=== PATIENT | female | born 1945 | race Caucasian/White ===

== ENCOUNTER → 2017-06-28 | Outpatient (CLI) | payer OTHER, MEDICARE ==
[2017-06-28 18:28] LABS: BLOOD UREA NITROGEN 16 mg/dl (7-18); CALCIUM 9.1 mg/dl (8.5-10.1); CARBON DIOXIDE 29 mmol/L (21-32); CHLORIDE 104 mmol/L (98-107); GLUCOSE 125 mg/dl (70-99); SODIUM 139 mmol/L (136-145)
== END | disposition home or self-care (01) ==
LOC: C.LABMFLN 15:48
PROVIDERS: ATTEND Family Medicine
DX: E78.00 Pure hypercholesterolemia, unspecified (principal); I10 Essential (primary) hypertension; E03.9 Hypothyroidism, unspecified

== ENCOUNTER 2023-02-25 09:53 | Observation (INO) ==
--- NOTE | 2022-07-01 11:56 | Communication Note ---
Patient scheduled for Left TKA 08/13/22. Patient had positive rapid testing done 06/27 at [facility] ("antigen" testing per PAT RN). Case reviewed by anesthesia team. Plan for patient to have PCR Covid testing done at PAT visit 07/12/22.
--- NOTE | 2022-07-05 14:58 | PAT Medication Instructions ---
Medication Instructions Date of Service July 05, 2022 Home Medications aspirin 81 mg tablet,delayed release 81 mg PO QAM niacin 500 mg tablet 500 mg PO QAM amoxicillin 500 mg tablet 2,000 mg PO ONCE PRN Prior to Dental procedure amlodipine 2.5 mg tablet 2.5 mg PO QAM atorvastatin 10 mg tablet 10 mg PO HS fenofibrate micronized 200 mg capsule 200 mg PO QAM molnupiravir 200 mg capsule (EUA) 800 mg PO Q12H omega-3 fatty acids 1,000 mg capsule 3,000 mg PO QAM omeprazole 20 mg capsule,delayed release 20 mg PO QAM Continue as directed amoxicillin 500 mg tablet 2,000 mg PO ONCE PRN Prior to Dental procedure (if needed) molnupiravir 200 mg capsule (EUA) 800 mg PO Q12H STOP taking 2 weeks before surgery (or as soon as possible if surgery is within 2 weeks) omega-3 fatty acids 1,000 mg capsule 3,000 mg PO QAM STOP taking 48 hours before surgery fenofibrate micronized 200 mg capsule 200 mg PO QAM niacin 500 mg tablet 500 mg PO QAM Take morning of surgery With a small sip of water, OTHERWISE NOTHING TO EAT OR DRINK AFTER MIDNIGHT: aspirin 81 mg tablet,delayed release 81 mg PO QAM (continue as normal unless told otherwise by surgeon) amlodipine 2.5 mg tablet 2.5 mg PO QAM omeprazole 20 mg capsule,delayed release 20 mg PO QAM Take evening before surgery atorvastatin 10 mg tablet 10 mg PO HS Other Notes If you have any questions please call us at [phone] or [phone] or [phone] or [phone]
--- NOTE | 2022-07-14 12:14 | Anesthesiology Consultation ---
Date of Service July 14, 2022 Assessment & Plan (1) Encounter for pre-operative examination: - anemia: pre-op H&H: 07/16. PCP planning to further evaluate, awaiting PCP pre- op determination. - Urgent/express/convenient care 06/27/22: "...runny nose and body aches for 2 days...son is positive and he lives with them...fully vaccinated...COVID test positive..." Pt states symptoms have since fully resolved. - cardiology 11/09/21: "...1 month visit after transfemoral TAVR...uncomplicated procedure and hospital course and was discharged on postoperative day #1...shortness of breath is gone...NYHA class 1...see her back in September of 2022..." Chart Review Chart Review: Pending: Refer to Additional Notes / Consult section and Patient seen in Pre Admission Testing Teaching & Discussion Pre-Anesthesia Teaching/Discussion Notes: Instructed NPO after midnight before surgery, except medications with 15 cc of water. Medication instructions provided according to the PAT guidelines. History Surgery Operation Date: 08/13/22 10:10 Proposed Procedures p Left Total Knee Arthroplasty - Mor Lou, Height/Weight Height: 5 ft 7.5 in Weight: 108.4 kg Allergies Allergy/AdvReac Type Severity Reaction Status Date / Time No Known Allergies Allergy Verified 06/30/22 14:33 Medications Home Medications Medication Instructions Recorded Confirmed Last Taken aspirin 81 mg tablet,delayed 81 mg PO QAM 11/06/21 06/30/22 Unknown release niacin 500 mg tablet 500 mg PO QAM 11/06/21 06/30/22 Unknown amoxicillin 500 mg tablet 2,000 mg PO ONCE PRN Prior to 12/07/21 06/30/22 Unk nown Dental procedure amlodipine 2.5 mg tablet 2.5 mg PO QAM 06/30/22 06/30/22 Unknown atorvastatin 10 mg tablet 10 mg PO HS 06/30/22 06/30/22 Unknown fenofibrate micronized 200 mg 200 mg PO QAM 06/30/22 06/30/22 Unknown capsule molnupiravir 200 mg capsule (EUA) 800 mg PO Q12H 06/30/22 06/30/22 Unknown omega-3 fatty acids 1,000 mg 3,000 mg PO QAM 06/30/22 06/30/22 Unknown capsule omeprazole 20 mg capsule,delayed 20 mg PO QAM 06/30/22 06/30/22 Unknown release Past Medical History Medical History (Updated 07/14/22 @ 17:09 by Randy Clayton MD) Acid reflux controlled, stable per pt Anemia pre-op H&H 06/2022: 07/16 Aortic stenosis s/p TAVR 09/2021, follows with [facility] CKD (chronic kidney disease) no specialist Gout History of COVID-19 Jun 27, 2022 > tested at Urgent care in [place] (MAXIMILIANO Clint) , body aches, cold like symptoms, > still has some congestion Hypercholesterolemia Hypertension controlled, stable per pt Nausea and vomiting after administration of anesthetic agent denies needing scop patch Prediabetes diet controlled Patient denies h/o stroke, seizures, heart attack, heart failure, blood clots or blood transfusions. Exercise / Class Metabolic Activity III < 4 Walking/Shop/Light housework (denies CP or SOB with usual activities) Past Family History Family History Mother Breast cancer Brother Heart disease Myocardial infarction Denies family history of Ovarian cancer Prostate cancer Lung cancer Colorectal cancer Past Surgical History Surgical History [place] [facility] [place] History of colonoscopy History of tooth extraction S/P cholecystectomy Past Anesthesia History No Hx of Anesthesia Complications and No Family Hx of Anesthesia Complications History of PONV History of PONV (denies needing scop patch) and Hx of Motion Sickness Social History Smoking Status: Never smoker Do You Dip or Chew Tobacco: No Hx Alcohol Use: Yes Alcohol type: hard liquor alcohol intake frequency: holidays/special occasions only Hx Substance Use: No substance use type: does not use Review of Systems Patient denies chest pain, shortness of breath, dyspnea on exertion, snoring, witnessed apneas, fever, chills, cough, wheezing, or palpitations. Physical Exam Vital Signs Vitals BP 118/70 P 64 TEMP 98.2 SP02 97% on RA RESP 16 Physical Full cervical extension range of motion without pain TMD 3.5 finger breadths Mallampati Score 2 Dentition: intact, implant-left lower back, several caps/crowns; denies chipped or loose teeth or bridges Lungs: normal respiratory effort. Clear throughout to auscultation, no adventitious breath sounds Cardiac: regular rate and rhythm, no murmurs noted Carotid arteries: negative bruit bilat Lab Results Anesthesia Preop Results Results Anesthesia Widget: WBC 7.91 K/ul (4.8-10.8) 07/14/22 Hgb 9.4 g/dl (12.0-16.0) L 07/14/22 Hct 30.3 % (34.1-44.9) L 07/14/22 Plt 338 K/uL (130-400) 07/14/22 Na 139 mmol/L (136-145) 07/14/22 K 4.4 mmol/L (3.5-5.1) 07/14/22 Cl 108 mmol/L (98-107) H 07/14/22 CO2 24 mmol/L (21-32) 07/14/22 BUN 32 mg/dl (6-23) H 07/14/22 Creat 1.55 mg/dl (0.6-1.2) H 07/14/22 Glucose Level 107 mg/dl (70-99(Fasting)) H 07/14/22 PT 11.4 Seconds (9.0-12.0) 07/14/22 PTT 22.4 Seconds (21.0-31.0) 07/14/22 INR 1.1 (0.9-1.1) 07/14/22 HA1c 6.5 % (4.5-5.6) H 06/10/22 Blood Type A Positive 07/14/22 Antibody Screen NEGATIVE 07/14/22 Testing Electrocardiogram Date: 11/09/21 NSR, rate 73 bpm Nonspecific T wave abnormality Chest X-Ray Date: 07/14/22 Mild cardiomegaly without acute abnormality. Echocardiogram Date: 09/08/21 EF 60-65% Severe aortic stenosis-underwent TAVR [id number] Grade I diastolic dysfunction Moderate cLVH No regional wall motion abnormalities noted Mild LA dilatation Mild mitral regurgitation Other Testing Head CT 08/29/21 Moderate atrophy consistent with the patient's age. No acute intracranial abnormality COVID-19 Risk Screen Screening Information COVID-19 Screen Date: 07/14/22 Exposure 21 Days Family/Household +COVID Last 21 Days: No Exposure 10 Days Any COVID Exposure Last 10 Days: No Symptoms Last 10 Days Experienced COVID Sx Last 10 Days: No + COVID 0-90 Days COVID + in Last 0-90 Days: Yes + COVID Test 0-10 Day: No + COVID Test 11-90 Day: Yes
--- NOTE | 2023-02-15 11:01 | Anesthesiology Consultation ---
Date of Service February 15, 2023 Assessment & Plan (1) Encounter for pre-operative examination: Chart Review Chart Review: Acceptable Risk for Surgery and Patient NOT seen in Pre Admission Testing - Pt is not an OPJ candidate -COVID screening: Per PAT nursing assessment on 02/15/23. No known COVID-19 positive contacts or current COVID-19 related symptoms. Travel screen negative. Patient vaccinated for Covid. At surgeon discretion if preop Covid testing being done. Pt seen by PCP 11/23/22= "Left Knee OA w planned TKR Cardiac cath. NL at time of TAVR. Needs SBE prophylaxis at time of surgery." Recommend repeat labs Last seen by cardiology 10/13/2022 = patient seen for follow-up 1 year status post TAVR. Patient had uncomplicated procedure and hospital course. Patient was to have right TKA August 2022this was canceled due to low blood counts. Patient had endoscope identifying inflammation but no active site of bleeding. Colonoscopy was benign. From a cardiovascular standpoint she should proceed with rescheduling with orthopedics. This certainly is pending her follow up with GI given iron deficiency anemia. (Anemia improved) History Surgery Operation Date: 08/13/22 10:30 Proposed Procedures p Left Total Knee Arthroplasty - Mor Lou DO Operation Date: 12/06/22 10:40 Proposed Procedures p Left Total Knee Arthroplasty - Mor Lou DO Operation Date: 02/25/23 08:10 Proposed Procedures p Left Total Knee Arthroplasty - Mor Lou, DO Height/Weight Height: 5 ft 7.5 in Weight: 107.501 kg Allergies Allergy/AdvReac Type Severity Reaction Status Date / Time No Known Allergies Allergy Verified 02/15/23 10:32 Medications Home Medications Medication Instructions Recorded Confirmed Last Taken aspirin 81 mg tablet,delayed 81 mg PO QAM 11/06/21 02/15/23 09/13/22 release niacin 500 mg tablet 500 mg PO QAM 11/06/21 02/15/23 09/13/22 amoxicillin 500 mg tablet 2,000 mg PO ONCE PRN Prior to 12/07/21 02/15/23 Unknown Dental procedure atorvastatin 10 mg tablet 10 mg PO HS 06/30/22 02/15/23 09/13/22 fenofibrate micronized 200 mg 200 mg PO QAM 06/30/22 02/15/2322 capsule omega-3 fatty acids 1,000 mg 3,000 mg PO QAM 06/30/22 02/15/23 09/13/22 capsule 3-in-1 Commode #1 ea 08/05/22 02/15/23 Unknown ascorbic acid (vitamin C) 250 mg 250 mg PO QAM 09/02/22 02/15/23 09/13/22 tablet omeprazole 40 mg capsule,delayed 40 mg PO QAM 09/02/22 02/15/23 09/14/22 release amlodipine 2.5 mg tablet 2.5 mg PO QAM #90 tabs 12/06/22 02/15/23 Unknown ferrous sulfate 325 mg (65 mg 325 mg PO QAM #90 tabs 01/28/23 02/15/23 Unknown iron) tablet Past Medical History Medical History (Updated 02/15/23 @ 11:01 by Cathy Goins PA-C) Acid reflux controlled, stable per pt Anemia Improved from previous - Hgb 12.2 and Hct 36.8 on 01/2023 preop labs Aortic stenosis s/p TAVR 09/2021, follows with [facility] CKD (chronic kidney disease) no specialist Gout History of COVID-19 Jun 27, 2022 > tested at Urgent care in [place] (MAXIMILIANO Jaramillo) , body aches, cold like symptoms, > no symptoms now Hypercholesterolemia Hypertension controlled, stable per pt Nausea and vomiting after administration of anesthetic agent denies needing scop patch Prediabetes diet controlled Hgb A1C 6.5 on 11/23/22 Past Family History Family History Mother Breast cancer Brother Heart disease Myocardial infarction Denies family history of Ovarian cancer Prostate cancer Lung cancer Colorectal cancer Past Surgical History Surgical History H/O aortic valve repair Sep 2021 > [facility] [place] H/O arthroscopic knee surgery right History of colonoscopy History of esophagogastroduodenoscopy (EGD) History of tooth extraction S/P cholecystectomy Social History Smoking Status: Never smoker Do You Dip or Chew Tobacco: No Hx Alcohol Use: Yes Alcohol type: wine alcohol intake frequency: a few times a month Hx Substance Use: No substance use type: does not use Lab Results Anesthesia Preop Results Results Anesthesia Widget: WBC 8.33 K/ul (4.8-10.8) 01/25/23 Hgb 12.2 g/dl (12.0-16.0) 01/25/23 Hct 36.8 % (37.0-47.0) L 01/25/23 Plt 291 K/uL (130-400) 01/25/23 Na 138 mmol/L (136-145) 01/25/23 K 4.3 mmol/L (3.5-5.1) 01/25/23 Cl 104 mmol/L (98-107) 01/25/23 CO2 25 mmol/L (21-32) 01/25/23 BUN 24 mg/dl (6-23) H 01/25/23 Creat 1.36 mg/dl (0.6-1.2) H 01/25/23 Glucose Level 128 mg/dl (70-99(Fasting)) H 01/25/23 PT 11.2 Seconds (9.0-12.0) 01/25/23 PTT 23.6 Seconds (21.0-31.0) 01/25/23 INR 1.1 (0.9-1.1) 01/25/23 Blood Type A Positive 01/25/23 Antibody Screen NEGATIVE 01/25/23 Testing Laboratory Results Elevated creatinine chronic and stable since 2020 Electrocardiogram Date: 10/04/22 Findings: + NSR @ (77bpm) Late R wave progression When compared to EKG from November 09, 2021no significant changes found per cardio Chest X-Ray Date: 07/14/22 FINDINGS: No lines and tubes are seen. Aortic valvular replacement is noted. The cardiac silhouette is mildly prominent. The lungs are clear. No evidence of pleural effusion or pneumothorax. IMPRESSION: Mild cardiomegaly without acute abnormality. Echocardiogram Date: 10/04/22 EF: 60-65% History of aortic stenosis status post TAVR (26 mm Almodovar KETURAH S3, 2020). No prosthetic stenosis. Trace paravalvular regurgitation. Normal LV size and systolic function with no regional wall motion abnormalities. Normal systolic function, estimated EF 60-65% Concentric remodeling is present No indirect evidence of pulmonary hypertension Normal IVC size and inspiratory collapse suggestive of normal CVP/RAP Compared to prior date 10/2021, no major changes based on directly comparable images
--- NOTE | 2023-02-24 12:27 | History & Physical Report ---
Date of Service February 24, 2023 Assessment & Plan (1) Localized osteoarthritis of left knee: We will proceed with a left total knee arthroplasty. Postoperatively she will be started on aspirin for DVT prophylaxis and kept overnight in the hospital for postoperative medical management. She plans to use energy physical therapy upon discharge. History of Present Illness Chief Complaint: Osteoarthritis of the left knee. Primary Care Provider: Randy Clayton MD Sharita is a pleasant 77-year-old female who has been dealing with chronic worsening left knee pain. X-rays and clinical examination have been diagnostic for advanced osteoarthritis of the left knee. After failing extensive conservative treatment, including years of injections, she has elected proceed with a left knee replacement surgery. Allergies Allergy/AdvReac Type Severity Reaction Status Date / Time No Known Allergies Allergy Verified 02/15/23 10:32 Home Medications Medication Instructions Recorded Confirmed Type aspirin 81 mg tablet,delayed 81 mg PO QAM 11/06/21 02/15/23 History release niacin 500 mg tablet 500 mg PO QAM 11/06/21 02/15/23 History amoxicillin 500 mg tablet 2,000 mg PO ONCE PRN Prior to 12/07/21 02/15/23 History Dental procedure atorvastatin 10 mg tablet 10 mg PO HS 06/30/22 02/15/23 History fenofibrate micronized 200 mg 200 mg PO QAM 06/30/22 02/15/23 History capsule omega-3 fatty acids 1,000 mg 3,000 mg PO QAM 06/30/22 02/15/23 History capsule 3-in-1 Commode #1 ea 08/05/22 02/15/23 Rx ascorbic acid (vitamin C) 250 mg 250 mg PO QAM 09/02/22 02/15/23 History tablet omeprazole 40 mg capsule,delayed 40 mg PO QAM 09/02/22 02/15/23 History release amlodipine 2.5 mg tablet 2.5 mg PO QAM #90 tabs 12/06/22 02/15/23 Rx ferrous sulfate 325 mg (65 mg 325 mg PO QAM #90 tabs 01/28/23 02/15/23 Rx iron) tablet Past Med/Surg History Medical History Acid reflux controlled, stable per pt Anemia Improved from previous - Hgb 12.2 and Hct 36.8 on 01/2023 preop labs Aortic stenosis s/p TAVR 09/2021, follows with [facility] CKD (chronic kidney disease) no specialist Gout History of COVID-19 Jun 27, 2022 > tested at Urgent care in [place] (MAXIMILIANO Farleyir) , body aches, cold like symptoms, > no symptoms now Hypercholesterolemia Hypertension controlled, stable per pt Nausea and vomiting after administration of anesthetic agent denies needing scop patch Prediabetes diet controlled Hgb A1C 6.5 on 11/23/22 Surgical [place] [facility] [place] History of colonoscopy History of esophagogastroduodenoscopy (EGD) History of tooth extraction S/P cholecystectomy Family History Mother Breast cancer Brother Heart disease Myocardial infarction Denies family history of Ovarian cancer Prostate cancer Lung cancer Colorectal cancer Social History Smoking Status: Never smoker Second Hand Exposure: No; Do You Dip or Chew Tobacco: No; Tobacco Cessation Education Requested by Patient: No Hx Alcohol Use: Yes Alcohol type: wine Alcohol Intake Frequency: Monthly or Less Alcohol Intake Frequency Comment: Rarely Hx Substance Use: No Preferred Language: [place] Communication Ability: Effective Visual Impairment: Partially Limited Hearing Ability: Normal Air Tester Required: No Beliefs That Will Affect Care: None marital status: / Current Living Situation: Alone Current Living Situation Comment: Son lives with patient currently current occupational status: retired current occupation: Used to work as a insurance and traveling passenger agent. How many Children do You have: 2 How many Children do You have Comment: Step children Other Information That Helps Us Care for You: No Feels Safe at Home: Yes Safety Concerns: Feels Safe At This Time Childhood Exposure to Second-Hand Smoke: Yes (Father smoked) Diet: regular Diet Comment: Regular caffeine: Yes (Coffee ) during the past year weight has: decreased > 10 lbs Dental Care, Regularly: Yes Physical Activity Frequency: Does not Exercise Seatbelt Use: always Sunscreen Use: No Do you think of yourself as: straight/heterosexual Gender Identity: Female Assistive Devices: Glasses Review of Systems All systems reviewed & are unremarkable except as noted in HPI & below. Physical Exam On physical examination left knee, she has a significant varus deformity. She has tenderness palpation over the distal medial femoral condyle and over the medial joint line.. Constitutional WD/WN, vitals as above Eyes PERRL, conjunctivae normal, anicteric sclerae ENMT external ear and nose normal, oropharynx normal Neck trachea midline, no thyromegaly Respiratory normal respiratory effort, lungs clear to auscultation Cardiovascular RRR, no murmur, no edema Gastrointestinal (Abdomen) normal bowel sounds, soft, nontender, no hepatosplenomegaly Skin no rashes, warm and dry Psychiatric A+Ox3, euthymic affect Results & Data Results & Data Laboratory Results . Diagnostic Findings X-rays of the left knee show advanced osteoarthritis with joint space narrowing, osteophyte formation, and [id number] articulation.. PG Care Time/CCT Total # of Minutes Spent Total Time Spent with Patient: Total time spent is greater than 50% in coordination of care (as documented) at patient's floor/unit and/or counseling patient: Coding Level of Care Code None Diagnoses Localized osteoarthritis of left knee M17.12
[~2023-02-25 09:53] MED LIST: ACETAMINOPHEN 500 MG TAB PO SCH; FAMOTIDINE 20 MG TAB PO SCH; GABAPENTIN 300 MG CAP PO SCH; LR 500ML BOLUS, THEN 15ML/HR IV SCH; LR 60ML/HR IV SCH; ORTHO JOINT MIX INFIL SCH; TRANEXAMIC ACID 1,000 MG **IV Intra-op IV SCH; TRANEXAMIC ACID 1,000 MG **IV Pre-op IV SCH; ceFAZolin 2000MG 2,000 MG/15 ML SYR IV SCH; dexAMETHasone 4 MG TAB PO SCH
[2023-02-25] MEDS ORDERED: BUPIVACAINE 0.25% PF 30 ML VIAL ONE (10:15)
[2023-02-25] MEDS ORDERED: BUPIVACAINE 0.5 % 5 MG/1 ML PF 10ML VIAL ONE (10:15)
[2023-02-25] MEDS ORDERED: ePHEDrine sulfate 50 MG/ML AMP IV PRN (12:11)
[2023-02-25] MEDS ORDERED: ONDANSETRON INJ 2 MG/ML 2 ML VIAL IV PRN ×2 (12:11→16:06)
[2023-02-25] MEDS ORDERED: ATROPINE SULFATE 0.1 MG/ML 10ML SYR IV PRN (12:11)
[2023-02-25] MEDS ORDERED: fentaNYL citrate PF 100 MCG/2 ML VIAL IV PRN (12:11)
--- NOTE | 2023-02-25 12:23 | History & Physical Bridge Note ---
Date of Service February 25, 2023 History & Physical Bridge Note I have examined the patient, reviewed the History & Physical and in the interval since the performance of the History & Physical I have noted the following changes of clinical significance: no changes noted
[2023-02-25] MEDS ORDERED: ORTHO JOINT ANESTHETIC ONE (12:54)
[2023-02-25] MEDS ORDERED: MIDAZOLAM HCL 1 MG/ML 2ML VIAL ONE (12:59)
[2023-02-25] MEDS ORDERED: ONDANSETRON INJ 2 MG/ML 2 ML VIAL ONE (13:02)
[2023-02-25] MEDS ORDERED: PROPOFOL IV EMULSION 10 MG/ML 20 ML VIAL IV ONE (13:02)
[2023-02-25] MEDS ORDERED: PHENYLEPHRINE HCL 10 MG/ML VIAL ONE (14:33)
--- NOTE | 2023-02-25 14:54 | Operative Report ---
PG Post Operative Report Pre & Post Diagnosis Operation Date: 02/25/23 12:50 Pre-Op Diagnosis: Left Knee Osteoarthritis Post-Op Diagnosis: Left Knee Osteoarthritis I identified the patient and participated in the time-out.: Yes Procedure Operation Date: 02/25/23 12:50 Actual Procedures p Left Total Knee Arthroplasty(Left) - Mor Lou DO Surgeon Mor Lou DO Dance Master Evan Hsieh PA-C Estimated Blood Loss 30 Findings Consistent with Post-Op Diagnosis Specimens Left femoral and tibial bone Description of Procedure Implants used: I used a Trell Persona total knee arthroplasty system with a size 9 narrow PS femur, D tibia with a 30 mm stem extension, 31 oval patella, and a size 12 CPS polyethylene bearing. All components were cemented in place with Biomet cement. Sharita arrived [facility] for the above procedure. She was seen in the preoperative holding area and the operative extremity was identified and signed. She was given a preoperative antibiotic, TXA, a spinal anesthetic and an adductor nerve block. She was taken back to the operating room and laid on the table in supine position. She was given basic sedation. The operative knee was then prepped and draped in sterile fashion. A timeout was done, and the patient and the operative extremity was properly identified. A midline incision was made directly over the patella. Dissection was taken down to the extensor mechanism. A midvastus arthrotomy was used. The medial retinaculum was released and the fat pad was mostly excised. The knee was flexed and the ACL, PCL, and meniscus were removed. A drill was sent down the center of the femoral canal followed by an intramedullary david. Off that david a distal femoral cutting block was placed. 9 mm was resected off the distal femur at 5 of valgus. A posterior referencing AP sizing guide was then placed on the distal femur. The femur measured to be a size 9. 2 drill holes were placed in 3 of external rotation. A 4-in-1 cutting block was then impacted into place. Anterior, posterior, and chamfer cuts were then made. The proximal tibia was then exposed. An external tibial alignment guide was placed. A tibial cut guide was then anchored in place and the proximal tibia was then resected. The posterior aspect of the knee was then opened up and any additional meniscus fragments and osteophytes were removed. The tibia measured to be a size D. The tibial plate was then placed in the appropriate rotation and the tibia was drilled and punched. Trial components were then placed. I used a size 12 CPS polyethylene insert. The knee was brought through a full range of motion and felt to be stable. The peg holes for the femoral component were then drilled. The patella was then everted and 9 mm was resected off the posterior aspect of the patella. The patella measured to be a size 31 oval. 3 peg holes were then drilled. A trial patella was placed. The knee was once again brought through a full range of motion and felt to be stable. Trial components were then removed. The surrounding soft tissues were injected with 100 cc of an orthopedic pain control cocktail. All components were then cemented into place with Biomet cement. The final polyethylene insert was then snapped into place. Once cement was dry the tourniquet was deflated. Hemostasis was obtained. A dilute betadyne lavage was then done for 3 minutes. The joint was then irrigated with normal saline solution. The midvastus arthrotomy was then closed with #1 Vicryl suture. The skin was closed with 2-0 Vicryl, 3-0V lock suture, and nayan. A soft compressive dressing was placed. She was then transferred to a hospital bed and taken to the postanesthesia care unit in stable condition. She tolerated the procedure well. Evan Hsieh PA-C, was present for the entire procedure. He was critical for patient positioning, prepping, draping, retraction exposure, wound closure and application of sterile dressing. I attest to the content of the Intraoperative Record and any orders documented therein. Any exceptions are noted below.
--- NOTE | 2023-02-25 15:33 | Anesthesiology Progress Note ---
Date of Service February 25, 2023 Anesthesia Post Procedure Vital Signs Vital Signs: Temp Pulse Resp BP Pulse Ox O2 Del Method 02/25/23 11:06 36.8 C 75 20 174/72 H 98 Room Air Transfer of Care Handoff Completed per policy Notes Mental Status: alert / awake / arousable Patient Amnestic to Procedure: Yes Nausea / Vomiting: adequately controlled Pain: adequately controlled Airway Patency, RR, SpO2: stable & adequate BP & HR: stable & adequate Hydration State: stable & adequate Neuraxial Anesthesia: was administered and sensory block is resolving Anesthetic Complications: no major complications apparent
--- NOTE | 2023-02-25 15:52 | XRay Report ---
LEFT KNEE 2 VIEWS History: Left total knee arthroplasty. Degenerative arthritis. Postop. FINDINGS: The patient is status post a left total knee arthroplasty. The hardware is intact. No fract ure or dislocation. Skin nayan are in place. IMPRESSION: Left total knee arthroplasty. No evidence for hardware complication. ACT 112: Negative or not required by law. Electronically signed by: Nelson Benito M.D. 02/25/2023 3:51 PM
[2023-02-25] MEDS ORDERED: oxyCODONE HCL IR 5 MG TAB (IMMEDIATE RELEASE) PO PRN (16:06)
[2023-02-25] MEDS ORDERED: METOCLOPRAMIDE HCL INJ 5 MG/ML 2 ML VIAL IV PRN (16:06)
[2023-02-25] MEDS ORDERED: NALOXONE HCL 0.4 MG/1 ML VIAL/CARP IV PRN (16:06)
[2023-02-25] MEDS ORDERED: MAGNESIUM HYDROXIDE SUSP 30 ML UDC PO PRN (16:06)
[2023-02-25] MEDS ORDERED: bisacodyL 10 MG SUPP PR PRN (16:06)
[2023-02-25] MEDS ORDERED: SODIUM CHLORIDE 0.9% 1000ML 1,000 ML IV SCH (16:06)
[2023-02-25] MEDS ORDERED: PHARMACY GLYCEMIC MGMT CONSULT PRN (16:06)
[2023-02-25] MEDS: KETOROLAC TROMETHAMINE 15 MG/ML VIAL IV SCH (16:35)
[2023-02-25] MEDS: INSULIN ASPART PER UNIT CHARGE SC SCH ×2 (17:48→19:56)
[2023-02-25] MEDS ORDERED: ATORVASTATIN 10 MG TAB PO SCH (21:00)
[2023-02-25] MEDS ORDERED: SENNA 8.6 MG TAB PO SCH (21:00)
[2023-02-25] MEDS: DOCUSATE SODIUM 100 MG CAP PO SCH (21:03)
[2023-02-25] MEDS: ceFAZolin 2000MG 2,000 MG/15 ML SYR IV SCH (21:03)
[2023-02-25] MEDS: ASPIRIN 81 MG ECTAB PO SCH (21:04)
[2023-02-26] MEDS: KETOROLAC TROMETHAMINE 15 MG/ML VIAL IV SCH ×2 (00:36→05:41)
[2023-02-26] MEDS: ceFAZolin 2000MG 2,000 MG/15 ML SYR IV SCH (05:41)
[2023-02-26] MEDS: ASPIRIN 81 MG ECTAB PO SCH (07:24)
[2023-02-26] MEDS: DOCUSATE SODIUM 100 MG CAP PO SCH (07:24)
--- NOTE | 2023-02-26 07:40 | Orthopedic Progress Note ---
Date of Service February 26, 2023 Assessment & Plan (1) Status post left knee replacement: Overall she is doing very well. She is not having much pain in the left knee. She will be seen by physical therapy today for ambulation and range of motion exercises. She is on aspirin for DVT prophylaxis. She can be discharged home later today. She will follow-up with orthopedics in 2 weeks. Subjective Sharita was seen and examined at bedside this morning. Overall she is doing very well. She is not having much pain in the left knee. She has been up and ambulating to the bathroom. She is no complaints.. Review of Systems All systems reviewed & are unremarkable except as noted in HPI & below. Physical Exam On physical examination of left knee, the dressing is clean and dry. Her leg is out full extension. She has active dorsiflexion plantarflexion of her left ankle.. Results & Data Results & Data Laboratory Results . Diagnostic Findings Postoperative x-rays of the left knee show the prosthesis to be in anatomic alignment without any evidence of fracture, screws, or loosening. PG Care Time/CCT Total # of Minutes Spent Total Time Spent with Patient: Total time spent is greater than 50% in coordination of care (as documented) at patient's floor/unit and/or counseling patient: Coding Level of Care Code 87853 Post Operative Follow-Up Diagnoses Status post left knee replacement Z96.652
--- NOTE | 2023-02-26 07:41 | Discharge Summary ---
Date of Service February 26, 2023 Admission HPI (Per Admitting) Sharita is a pleasant 77-year-old female who has been dealing with chronic worsening left knee pain. X-rays and clinical examination have been diagnostic for advanced osteoarthritis of the left knee. After failing extensive conservative treatment, including years of injections, she has elected proceed with a left knee replacement surgery. Admission Exam (Per Admitting) On physical examination left knee, she has a significant varus deformity. She has tenderness palpation over the distal medial femoral condyle and over the medial joint line.. Principal Diagnosis Same as "Discharge Diagnosis" noted below under Discharge Instructions. Discharge Exam On physical examination of left knee, the dressing is clean and dry. Her leg is out full extension. She has active dorsiflexion plantarflexion of her left ankle.. Discharge Data Procedures Performed Operation Date: 02/25/23 12:50 Actual Procedures p Left Total Knee Arthroplasty(Left) - Mor Lou DO Ordered Studies 02/25/23 05:00 US - OR guided needle placemen Routine Hospital Course (1) Status post left knee replacement: On February 26, 2023 Sharita arrived at [facility] and underwent a left knee replacement without complication. She had a spinal anesthetic. Postoperatively she was started on aspirin for DVT prophylaxis and transferred to the general orthopedic floors. Her hospital course was uneventful. On postop day #1, her vital signs were stable and her pain was well controlled. She was able to participate well with physical therapy doing ambulation and range of motion exercises. She was then discharged home. She will follow-up with orthopedics in 2 weeks. PG Care Time/CCT Total # of Minutes Spent Total Time Spent with Patient: Total time spent is greater than 50% in coordination of care (as documented) at patient's floor/unit and/or counseling patient: Discharge Plan Discharge Items Patient Disposition: Home - Home Health Services Reason For Visit: POST OP Discharge Diagnosis: Left knee replacement Activity: Per Instructions section Non-emergency contact: Surgeon Call non-emergency contact if: your wound has increased redness and your wound has increased drainage Follow-up/Referrals: Randy Clayton MD [Primary Care Provider] - Diet: Regular Addtl Attending Provider Instructions: Activity and Therapy Recommendations: * If you are using [facility] then therapy will be provided at your home until they feel you have accomplished all of your goals. * If you are using [facility] then Physical Therapy will be provided until they feel you are ready to start Outpatient Physical Therapy. * If you are not using home therapy then Outpatient Physical Therapy should start about 3-5 days from your day of surgery. Therapy will last about 6-10 weeks * It is important not to put a pillow under your knee when you are relaxing or sleeping. It is just as important to make sure you are getting your knee perf ectly straight as it is to regain your knee bend. * You were shown a series of exercises in the hospital. Do these exercises three times each day including the exercises you were shown in physical therapy. * Get up and walk several times each day. For the first four weeks, try not to stand or walk for more than one hour at a time. If you do stand or walk for more than one hour, you will not hurt anything, but your leg will likely swell. * As you feel comfortable, you may change from the walker or crutches to a cane and then to independent walking. Medications: * Narcotic You will likely be sent home from the hospital with a prescription for the narcotic pain medication that worked best throughout your stay. * Aspirin Most patients will be required to take Aspirin 81mg twice a day for 6 weeks after surgery. This is obtained [id number] and a prescription is not necessary. * Other medications may be prescribed for specific circumstances. If you have a ny questions, please call the office at . * Resume previous home medications unless otherwise instructed TEDs/Elastic Stockings: The white elastic stockings help limit swelling and prevent blood clots from forming in your legs.~ The more you wear them, the more they work. Wear them for six weeks. Dressing Care: The dressing can be changed after physical therapy on postop day #1. Daily dry dressing changes for a few days, especially if the incision is still draining some. If the incision is not draining then you may leave the nayan open to air. If there is a little bit of drainage or if the nayan are getting stuck on your clothing then cover the incision with a dry dressing. The nayan will be removed at your 2 week follow-up appointment. Showering: You may shower 5 days from the day of surgery as long as the incision is no longer draining. You may shower with the nayan exposed. Let soapy water run over the nayan and pat them dry. Do not scrub or soak the incision. Things To Watch For: * Drainage from the incision site that occurs more than one week after your surgery. * Increased redness at the incision site. * Fever above 102 degrees Fahrenheit. * Unusual chest pain or shortness of breath. * Call [facility] at with any of the above problems Follow-Up Visit: Follow-up with Dr. Lou's PA (Mor Mendoza) 2-3 weeks after your day of surgery. He will remove your nayan and answer any questions. If you have any additional questions or concerns, Dr Lou is usually in the office at the same time and will be available An appointment was probably scheduled when you signed-up for surgery in the office. If you have any questions call Office Instructions: More detailed instructions as well as Frequently Asked Questions were provided in a folder by our office when you signed-up for surgery. Please review these instructions when you get home. If you have any further questions or concerns, please feel free to call the office at [phone] Pending Studies at Discharge: No Stand-Alone Forms: My [facility]ity Medications and DC Order Prescriptions: New oxycodone-acetaminophen 5-325 mg tablet 1 tab PO Q6H PRN (Reason: pain) Qty: 30 0RF Continued (DME) 3-in-1 Commode Misc See Rx Instructions .MEDSUPPLY Qty: 1 0RF Rx Instructions: As directed amlodipine 2.5 mg tablet 2.5 mg PO QAM Qty: 90 1RF ferrous sulfate 325 mg (65 mg iron) tablet 325 mg PO QAM Qty: 90 1RF amoxicillin 500 mg tablet 2,000 mg PO ONCE PRN (Reason: Prior to Dental procedure) niacin 500 mg tablet 500 mg PO QAM omega-3 fatty acids 1,000 mg capsule 3,000 mg PO QAM atorvastatin 10 mg tablet 10 mg PO HS fenofibrate micronized 200 mg capsule 200 mg PO QAM omeprazole 40 mg capsule,delayed release(DR/EC) 40 mg PO QAM ascorbic acid (vitamin C) 250 mg tablet 250 mg PO QAM Changed aspirin 81 mg tablet,delayed release (DR/EC) 81 mg PO BID 42 Days Qty: 0 0RF Admission Data Admit Date/Time: 02/25/23 15:17 Attending Provider: Mor Lou Admit Provider: Mor Lou Primary Care Provider: Randy Clayton
[2023-02-26] MEDS ORDERED: dexAMETHasone 4 MG TAB PO SCH (08:00)
[2023-02-26] MEDS: INSULIN ASPART PER UNIT CHARGE SC SCH (08:28)
[2023-02-26 08:54] LABS: Estimated Average Glucose 137 mg/dl; Hemoglobin A1C 6.4 % (4.5-5.6)
[2023-02-26] MEDS ORDERED: ASCORBIC ACID 500 MG TAB PO SCH (09:00)
[2023-02-26] MEDS ORDERED: FERROUS SULFATE 325 MG TAB PO SCH (09:00)
[2023-02-26] MEDS ORDERED: NIACIN 500 MG TAB PO SCH (09:00)
[2023-02-26] MEDS ORDERED: MULTIVITAMIN TAB PO SCH (09:00)
[2023-02-26] MEDS ORDERED: amLODIPine BESYLATE 5 MG TAB PO SCH (09:00)
[2023-02-26] MEDS ORDERED: OMEGA-3 (PURIFIED FISH OIL) 1 GM CAP PO SCH (09:00)
[2023-02-26] MEDS ORDERED: PANTOprazole 40 MG TAB PO SCH (09:00)
== END 2023-02-26 11:34 | disposition home health service (06) ==
LOC: ASU 09:53 → 3E 09:53

== ENCOUNTER 2023-06-27 06:04 | Observation (INO) ==
--- NOTE | 2023-05-24 14:36 | PAT Medication Instructions ---
Medication Instructions Date of Service May 24, 2023 Home Medications Medication Instructions Recorded 3-in-1 Commode #1 ea 08/05/22 amlodipine 2.5 mg tablet 2.5 mg PO QAM #90 tabs 12/06/22 ferrous sulfate 325 mg (65 mg 325 mg PO QAM #90 tabs 01/28/23 iron) tablet aspirin 81 mg tablet,delayed 81 mg PO BID 42 days #0 tabs 02/26/23 release amoxicillin 500 mg tablet 2,000 mg PO ONCE PRN Prior to 03/21/23 Dental procedure #4 tabs niacin 500 mg tablet 500 mg PO QAM atorvastatin 10 mg tablet 10 mg PO HS fenofibrate micronized 200 mg capsule 200 mg PO QAM omega-3 fatty acids 1,000 mg capsule 3,000 mg PO QAM ascorbic acid (vitamin C) 250 mg tablet 250 mg PO QAM omeprazole 40 mg capsule,delayed release 40 mg PO QAM amlodipine 2.5 mg tablet 2.5 mg PO QAM ferrous sulfate 325 mg (65 mg iron) tablet 325 mg PO QAM aspirin 81 mg tablet,delayed release 81 mg PO BID amoxicillin 500 mg tablet 2,000 mg PO ONCE PRN Prior to Dental procedure Continue as directed amoxicillin 500 mg tablet 2,000 mg PO ONCE PRN Prior to Dental procedure (if needed) ASK your prescriber and surgeon aspirin 81 mg tablet,delayed release 81 mg PO BID STOP taking 2 weeks before surgery omega-3 fatty acids 1,000 mg capsule 3,000 mg PO QAM STOP taking 48 hours before surgery niacin 500 mg tablet 500 mg PO QAM fenofibrate micronized 200 mg capsule 200 mg PO QAM DO NOT take the morning of surgery ascorbic acid (vitamin C) 250 mg tablet 250 mg PO QAM ferrous sulfate 325 mg (65 mg iron) tablet 325 mg PO QAM Take morning of surgery With a small sip of water, OTHERWISE NOTHING TO EAT OR DRINK AFTER MIDNIGHT: omeprazole 40 mg capsule,delayed release 40 mg PO QAM amlodipine 2.5 mg tablet 2.5 mg PO QAM Take evening before surgery atorvastatin 10 mg tablet 10 mg PO HS Other Notes If you have any questions please call us at [phone] or [phone] or [phone] or [phone]
--- NOTE | 2023-06-01 15:03 | Anesthesiology Consultation ---
Date of Service June 01, 2023 Assessment & Plan (1) Encounter for pre-operative examination: Chart Review Chart Review: Acceptable Risk for Surgery (pending cardio clearance 06/10/23) and Patient seen in Pre Admission Testing -Awaiting preop cardio clearance 06/10/23 ([facility] [place] Cardio) - Due to age and comorbidities- patient is NOT an OPJ candidate Per PAT appt on 06/01/23, no recent Covid exposures, Covid related symptoms, or recent Covid positive tests. Will leave to surgeon's discretion if preop Covid testing needed Per PCP Workload response re: preop anemia= "She is stable and okay to proceed." Patient seen by PCP 05/24/23= DM- well controlled. CKD- creat improved to 1.36 from 1.56. Left knee arthritis- right TKA planned 06/2023. S/p TAVR- TTE ordered, referred to cardio (for preop). HLD- check LP with ALT. Left TKA 02/25/23= Done under SAB at L4-5 with 1 attempt Teaching & Discussion Pre-Anesthesia Teaching/Discussion Notes: Instructed NPO after midnight before surgery,except medications with 15 cc of water. Medication instructions provided according to the PAT guidelines. History Surgery Operation Date: 06/27/23 08:00 Proposed Procedures p Right Total Knee Arthroplasty - Mor Lou DO Height/Weight Height: 5 ft 7.5 in Weight: 110 kg Allergies Allergy/AdvReac Type Severity Reaction Status Date / Time No Known Allergies Allergy Verified 05/24/23 13:42 Medications Home Medications Medication Instructions Recorded Confirmed Last Taken niacin 500 mg tablet 500 mg PO QAM 11/06/21 05/24/23 02/18/23 08:00 omega-3 fatty acids 1,000 mg 3,000 mg PO QAM 06/30/22 05/24/23 02/18/23 08:00 capsule 3-in-1 Commode #1 ea 08/05/22 05/24/23 Unknown ascorbic acid (vitamin C) 250 mg 250 mg PO QAM 09/02/22 05/24/23 09/13/22 tablet omeprazole 40 mg capsule,delayed 40 mg PO QAM 09/02/22 05/24/23 02/25/23 08:00 release ferrous sulfate 325 mg (65 mg 325 mg PO QAM #90 tabs 01/28/23 05/24/23 02/18/23 08:00 iron) tablet aspirin 81 mg tablet,delayed 81 mg PO BID 42 days #0 tabs 02/26/23 05/24/23 02/25/23 08:00 release amoxicillin 500 mg tablet 2,000 mg PO ONCE PRN Prior to 03/21/23 05/24/23 Unknown Dental procedure #4 tabs atorvastatin 20 mg tablet 20 mg PO DAILY #90 tabs 05/25/23 Unknown amlodipine 2.5 mg tablet 2.5 mg PO QAM #90 tabs 06/06/23 Unknown fenofibrate micronized 200 mg 200 mg PO QAM #90 caps 06/07/23 Unknown capsule Past Medical History Medical History Acid reflux controlled, stable per pt Anemia Aortic stenosis s/p TAVR 09/2021, follows with [facility] [place] Cardio CKD (chronic kidney disease) no specialist Gout History of COVID-Jun 27, 2022 > tested at Urgent care in [place] ([facility] Jaramillo) , body aches, cold like symptoms, > no symptoms now Hypercholesterolemia Hypertension controlled, stable per pt Nausea and vomiting after administration of anesthetic agent Prediabetes diet controlled Exercise / Class Metabolic Activity III < 4 Walking/Shop/Light housework (no chest pain or SOB with surface ambulation ) Past Family History Family History Mother Breast cancer Brother Heart disease Myocardial infarction Denies family history of Ovarian cancer Prostate cancer Lung cancer Colorectal cancer Past Surgical History Surgical History H/O arthroscopic knee surgery right History of colonoscopy History of esophagogastroduodenoscopy (EGD) History of left knee replacement Left TKA 02/25/23= Done under SAB at L4-5 with 1 attempt History of tooth extraction S/P cholecystectomy S/P TAVR (transcatheter aortic valve replacement) Sep 2021 > [facility] [place] Past Anesthesia History No Hx of Anesthesia Complications (with exception to remote hx of PONV) and No Family Hx of Anesthesia Complications History of PONV History of PONV (remote hx of PONV- no issues with most recent TKA ) and Hx of Motion Sickness Social History Smoking Status: Never smoker Do You Dip or Chew Tobacco: No Hx Alcohol Use: Yes Alcohol type: wine alcohol intake frequency: a few times a month Hx Substance Use: No substance use type: does not use Review of Systems - Hx of snoring- no hx of sleep study Patient denies chest pain, shortness of breath, dyspnea on exertion, cough, wheezing, palpitations. No hx of seizures, stroke, SC. No hx of blood clots or blood transfusions Physical Exam Vital Signs VITALS BP 126/71 P 79 TEMP 97.6 SP02 95% RESP 16 Constitutional no acute distress ENMT Mouth: no TMJ clicking Thyromental Distance: > or= 3.5 Finger Breadths (3.5) Mallampati Class: I Missing molars Permanent implant on side tooth; getting an additional implant placed two weeks prior to surgery (post already in place- just having cap placed)- surgeon aware and okay with proceeding Cap to molar Neck + limited neck extension Respiratory normal respiratory effort; no respiratory distress Auscultation: lungs clear to auscultation bilaterally; no wheezes Cardiovascular Rate/Rhythm: regular rate and regular rhythm Heart Sounds: no murmur Vessels: no carotid bruit Musculoskeletal Spine: no pain with cervical ROM Extremities: extremities normal to inspection Psychiatric Orientation: alert Lab Results Anesthesia Preop Results Results Anesthesia Widget: WBC 8.07 K/ul (4.8-10.8) 06/01/23 Hgb 11.0 g/dl (12.0-16.0) L 06/01/23 Hct 33.2 % (37.0-47.0) L 06/01/23 Plt 290 K/uL (130-400) 06/01/23 Na 137 mmol/L (136-145) 06/01/23 K 4.2 mmol/L (3.5-5.1) 06/01/23 Cl 104 mmol/L (98-107) 06/01/23 CO2 24 mmol/L (21-32) 06/01/23 BUN 27 mg/dl (6-23) H 06/01/23 Creat 1.31 mg/dl (0.6-1.2) H 06/01/23 Glucose Level 130 mg/dl (70-99(Fasting)) H 06/01/23 PT 11.5 Seconds (9.0-12.0) 06/01/23 PTT 23.3 Seconds (21.0-31.0) 06/01/23 INR 1.1 (0.9-1.1) 06/01/23 HA1c 6.3 % (4.5-5.6) H 06/01/23 Blood Type A Positive 06/01/23 Antibody Screen NEGATIVE 06/01/23 Testing Laboratory Results Anemia - will send workload note to PCP Elevated creatinine chronic and stable Electrocardiogram Date: 10/04/22 Findings: + NSR @ (77bpm) Late R wave progression When compared to EKG from November 09, 2021no significant changes found per cardio Chest X-Ray Date: 06/01/23 Findings: + NAD Echocardiogram Date: 05/27/23 EF: 60-65% LV Function: normal RWMA: + none Other Findings: + LVH (mild/concentric ) Normal RV size and function Post TAVR (26mm Almodovar KETURAH S3) with expected transvalvular gradients and trace paravalvular AI Normal estimated PA pressures Compared with prior study on 09/08/2021: TAVR has replaced severe aortic stenosis
--- NOTE | 2023-06-02 11:04 | Communication Note ---
Pt did voice concern at [facility] appt on 06/01/23- that her son may not be able to pick her up the next day until after 1100am due to school (patient's son in school until 1430). Patient will attempt to find ride from neighbor but may have to wait for son. Surgeon's office aware. Case management also informed.
[2023-06-27] MEDS ORDERED: BUPIVACAINE 0.5 % 5 MG/1 ML PF 10ML VIAL ONE (06:16)
[2023-06-27] MEDS ORDERED: BUPIVACAINE 0.25% PF 30 ML VIAL ONE (06:16)
--- NOTE | 2023-06-27 06:16 | History & Physical Bridge Note ---
Date of Service June 27, 2023 History & Physical Bridge Note I have examined the patient, reviewed the History & Physical and in the interval since the performance of the History & Physical I have noted the following changes of clinical significance: no changes noted
[2023-06-27] MEDS ORDERED: ONDANSETRON INJ 2 MG/ML 2 ML VIAL ONE (06:43)
[2023-06-27] MEDS ORDERED: MIDAZOLAM HCL 1 MG/ML 2ML VIAL ONE (06:43)
[2023-06-27] MEDS ORDERED: fentaNYL citrate PF 100 MCG/2 ML VIAL ONE (06:43)
[2023-06-27] MEDS ORDERED: LIDOCAINE 2% 2 ML VIAL/AMP(20MG/ML) INFIL ONE (06:43)
[2023-06-27] MEDS ORDERED: PROPOFOL IV EMULSION 10 MG/ML 20 ML VIAL IV ONE ×3 (06:43→09:16)
[2023-06-27] MEDS ORDERED: ePHEDrine sulfate 50 MG/ML AMP IV PRN (07:29)
[2023-06-27] MEDS ORDERED: ONDANSETRON INJ 2 MG/ML 2 ML VIAL IV PRN ×2 (07:29→11:02)
[2023-06-27] MEDS ORDERED: ATROPINE SULFATE 0.1 MG/ML 10ML SYR IV PRN (07:29)
[2023-06-27] MEDS ORDERED: fentaNYL citrate PF 100 MCG/2 ML VIAL IV PRN (07:29)
[2023-06-27] MEDS ORDERED: ORTHO JOINT ANESTHETIC ONE (07:53)
[2023-06-27] MEDS ORDERED: PHENYLEPHRINE 100MCG/ML 5ML SYR ONE (08:23)
[2023-06-27] MEDS ORDERED: PHENYLEPHRINE HCL 10 MG/ML VIAL ONE (09:26)
--- NOTE | 2023-06-27 09:41 | Operative Report ---
PG Post Operative Report Pre & Post Diagnosis Operation Date: 06/27/23 08:00 Pre-Op Diagnosis: Right Knee Degenerative Joint Disease Post-Op Diagnosis: Right Knee Degenerative Joint Disease I identified the patient and participated in the time-out.: Yes Procedure Operation Date: 06/27/23 08:00 Actual Procedures p Right Total Knee Arthroplasty(Right) - Mor Lou DO Surgeon Mor Lou DO Fishing Rod Assembler Mor Mendoza PA-C Estimated Blood Loss 30 Findings Consistent with Post-Op Diagnosis Specimens Right femoral tibial bone Description of Procedure Implants used: I used a Trell Persona total knee arthroplasty system with a size 8 PS narrow femur, D tibia, 31 oval patella, and a size 18 CPS polyethylene bearing. All components were cemented in place with Biomet cement. Sharita arrived [facility] for the above procedure. She was seen in the preoperative holding area and the operative extremity was identified and signed. She was given a preoperative antibiotic, TXA, a spinal anesthetic and an adductor nerve block. She was taken back to the operating room and laid on the table in supine position. She was given basic sedation. The operative knee was then prepped and draped in sterile fashion. A timeout was done, and the patient and the operative extremity was properly identified. A midline incision was made directly over the patella. Dissection was taken down to the extensor mechanism. A midvastus arthrotomy was used. The medial retinaculum was released and the fat pad was mostly excised. The knee was flexed and the ACL, PCL, and meniscus were removed. A drill was sent down the center of the femoral canal followed by an intramedullary david. Off that david a distal femoral cutting block was placed. 9 mm was resected off the distal femur at 5 of valgus. A posterior referencing AP sizing guide was then placed on the distal femur. The femur measured to be a size 8. 2 drill holes were placed in 3 of external rotation. A 4-in-1 cutting block was then impacted into place. Anterior, posterior, and chamfer cuts were then made. The proximal tibia was then exposed. An external tibial alignment guide was placed. A tibial cut guide was then anchored in place and the proximal tibia was then resected. The posterior aspect of the knee was then opened up and any additional meniscus fragments and osteophytes were removed. The tibia measured to be a size D. The tibial plate was then placed in the appropriate rotation and the tibia was drilled and punched. Trial components were then placed. I used a size 18 CPS polyethylene insert. The knee was brought through a full range of motion and felt to be stable. The peg holes for the femoral component were then drilled. The patella was then everted and 9 mm was resected off the posterior aspect of the patella. The patella measured to be a size 31 oval. 3 peg holes were then drilled. A trial patella was placed. The knee was once again brought through a full range of motion and felt to be stable. Trial components were then removed. The surrounding soft tissues were injected with 100 cc of an orthopedic pain control cocktail. All components were then cemented into place with Biomet cement. The final polyethylene insert was then snapped into place. Once cement was dry the tourniquet was deflated. Hemostasis was obtained. A dilute betadyne lavage was then done for 3 minutes. The joint was then irrigated with normal saline solution. The midvastus arthrotomy was then closed with #1 Vicryl suture. The skin was closed with 2-0 Vicryl, 3-0V lock suture, and nayan. A soft compressive dressing was placed. She was then transferred to a hospital bed and taken to the postanesthesia care unit in stable condition. She tolerated the procedure well. Mor Mendoza PA-C, was present for the entire procedure. He was critical for patient positioning, prepping, draping, retraction exposure, wound closure and application of sterile dressing. I attest to the content of the Intraoperative Record and any orders documented therein. Any exceptions are noted below.
[2023-06-27] MEDS ORDERED: bisacodyL 10 MG SUPP PR PRN (11:02)
[2023-06-27] MEDS ORDERED: METOCLOPRAMIDE HCL INJ 5 MG/ML 2 ML VIAL IV PRN (11:02)
[2023-06-27] MEDS ORDERED: oxyCODONE HCL IR 5 MG TAB (IMMEDIATE RELEASE) PO PRN (11:02)
[2023-06-27] MEDS ORDERED: NALOXONE HCL 0.4 MG/1 ML VIAL/CARP IV PRN (11:02)
[2023-06-27] MEDS ORDERED: HYDROmorphone INJ 0.5 MG/0.5 ML SYR IV PRN (11:02)
[2023-06-27] MEDS ORDERED: MAGNESIUM HYDROXIDE SUSP 30 ML UDC PO PRN (11:02)
[2023-06-27] MEDS: SODIUM CHLORIDE 0.9% 1,000 ML IV SCH ×2 (11:05→22:53)
--- NOTE | 2023-06-27 11:06 | XRay Report ---
XR knee RT 1 or 2V routine HISTORY: 78 years-old Female Surgical Post Op right knee arthroplasty COMPARISON: 04/20/2023 TECHNIQUE: 2 views of the right knee FINDINGS: Right knee total joint arthroplasty with patellar resurfacing. Anterior midline skin nayan with exp ected postoperative swelling and deep tissue air. No acute fracture, dislocation or unexpected opaque foreign body. IMPRESSION: Total joint arthroplasty with expected postoperative changes. ACT 112: Negative or not required by law. The above report was generated using voice recognition software. It may contain grammatical, syntax o r spelling errors. Electronically signed by: Guido Benitez M.D. 06/27/2023 11:05 AM
--- NOTE | 2023-06-27 14:20 | Anesthesiology Progress Note ---
Date of Service June 27, 2023 Anesthesia Post Procedure Vital Signs Vital Signs: Temp Pulse Pulse Resp BP Pulse Ox O2 Del Method 06/27/23 14:03 36.5 C 71 16 106/57 L 97 Nasal Cannula 06/27/23 13:05 36.4 C L 67 18 115/63 97 Nasal Cannula 06/27/23 12:00 36.6 C 74 18 126/66 97 Nasal Cannula 06/27/23 11:29 36.6 C 71 20 109/61 95 Nasal Cannula 06/27/23 11:02 Nasal Cannula 06/27/23 11:02 36.4 C L 70 20 119/64 94 Nasal Cannula 06/27/23 10:45 74 20 112/55 L 96 Nasal Cannula 06/27/23 10:35 72 18 118/54 L 95 Nasal Cannula 06/27/23 10:25 71 17 117/53 L 95 Nasal Cannula 06/27/23 10:15 36.5 C 71 17 121/50 L 97 Oxymask 06/27/23 10:05 73 17 109/51 L 96 Oxymask 06/27/23 09:59 37 C 76 17 106/49 L 96 Oxymask 06/27/23 06:45 36.6 C 79 18 152/70 H 95 Room Air O2 Flow Rate 06/27/23 14:03 1 06/27/23 13:05 1 06/27/23 12:00 1 06/27/23 11:29 1 06/27/23 11:02 2 06/27/23 11:02 2 06/27/23 10:45 2 06/27/23 10:35 2 06/27/23 10:25 2 06/27/23 10:15 4 06/27/23 10:05 11 06/27/23 09:59 11 06/27/23 06:45 Pain Intensity Right Knee: Pain Intensity: 1 Transfer of Care Handoff Completed per policy Notes Mental Status: alert / awake / arousable and participated in evaluation Patient Amnestic to Procedure: Yes Nausea / Vomiting: adequately controlled Pain: adequately controlled Airway Patency, RR, SpO2: stable & adequate BP & HR: stable & adequate Hydration State: stable & adequate Neuraxial Anesthesia: was administered and sensory block is resolving Anesthetic Complications: no major complications apparent and Pt Satisfied with anesthetic care
[2023-06-27] MEDS: ACETAMINOPHEN 500 MG TAB PO SCH ×2 (14:27→21:15)
[2023-06-27] MEDS: FENOFIBRATE~ORDER AWAITING ACTION SCH (14:28)
[2023-06-27] MEDS: ceFAZolin 2000MG 2,000 MG/15 ML SYR IV SCH (16:52)
[2023-06-27] MEDS: ASPIRIN 81 MG ECTAB PO SCH (20:06)
[2023-06-27] MEDS: DOCUSATE SODIUM 100 MG CAP PO SCH (20:07)
[2023-06-27] MEDS ORDERED: SENNA 8.6 MG TAB PO SCH (21:00)
[2023-06-28] MEDS: ceFAZolin 2000MG 2,000 MG/15 ML SYR IV SCH (00:10)
[2023-06-28] MEDS: FENOFIBRATE~ORDER AWAITING ACTION SCH ×2 (02:50→08:44)
[2023-06-28] MEDS: ACETAMINOPHEN 500 MG TAB PO SCH (06:04)
--- NOTE | 2023-06-28 07:14 | Orthopedic Progress Note ---
Date of Service June 28, 2023 Assessment & Plan (1) Status post right knee replacement: Overall she is doing very well. She is not having much pain in the right knee. She will be seen by physical therapy today for ambulation and range of motion exercises. She is on aspirin for DVT prophylaxis. She can be discharged home later today. She will follow-up with orthopedics in 2 weeks. Subjective Sharita was seen and examined at bedside this morning. Overall she is doing very well. She is not having much pain in the right knee. She has been up and ambulating to the bathroom. She has no complaints.. Review of Systems All systems reviewed & are unremarkable except as noted in HPI & below. Physical Exam On physical examination of the right knee, the dressing is clean and dry. Her leg is out full extension. She has active dorsiflexion plantarflexion of her right ankle.. Results & Data Results & Data Laboratory Results . Diagnostic Findings Postoperative x-rays of the right knee show the prosthesis to be in anatomic alignment without any evidence of fracture complication, or loosening.. PG Care Time/CCT Total # of Minutes Spent Total Time Spent with Patient: Total time spent is greater than 50% in coordination of care (as documented) at patient's floor/unit and/or counseling patient: Coding Level of Care Code 92545 Post Operative Follow-Up Diagnoses Status post right knee replacement Z96.651
--- NOTE | 2023-06-28 07:14 | Discharge Summary ---
Date of Service June 28, 2023 Principal Diagnosis Same as "Discharge Diagnosis" noted below under Discharge Instructions. Discharge Exam On physical examination of the right knee, the dressing is clean and dry. Her leg is out full extension. She has active dorsiflexion plantarflexion of her right ankle.. Discharge Data Procedures Performed Operation Date: 06/27/23 08:00 Actual Procedures p Right Total Knee Arthroplasty(Right) - Mor Lou DO Ordered Studies 06/27/23 05:00 US - OR guided needle placemen Routine Hospital Course (1) Status post right knee replacement: On June 27, 2023 Sharita arrived at [facility] and underwent a right knee replacement without complication. She had a spinal anesthetic. Postoperatively she was started on aspirin for DVT prophylaxis and transferred to the general orthopedic floor. Her hospital course was uneventful. On postop day #1, her vital signs were stable and her pain was well controlled. She was able to participate well with physical therapy doing ambulation and range of motion exercises. She was then discharged home. She will follow with orthopedics in 2 weeks. PG Care Time/CCT Total # of Minutes Spent Total Time Spent with Patient: Total time spent is greater than 50% in coordination of care (as documented) at patient's floor/unit and/or counseling patient: Discharge Plan Discharge Items Patient Disposition: Home - Home Health Services Reason For Visit: Right Knee DJD Discharge Diagnosis: Right knee replacement Activity: Per Instructions section Non-emergency contact: Surgeon Call non-emergency contact if: your wound has increased redness and your wound has increased drainage Follow-up/Referrals: Randy Clayton MD [Primary Care Provider] - Diet: Regular Addtl Attending Provider Instructions: Activity and Therapy Recommendations: * If you are using [facility] then therapy will be provided at your home until they feel you have accomplished all of your goals. * If you are using [facility] then Physical Therapy will be provided until they feel you are ready to start Outpatient Physical Therapy. * If you are not using home therapy then Outpatient Physical Therapy should start about 3-5 days from your day of surgery. Therapy will last about 6-10 weeks * It is important not to put a pillow under your knee when you are relaxing or sleeping. It is just as important to make sure you are getting your knee perfectly straight as it is to regain your knee bend. * You were shown a series of exercises in the hospital. Do these exercises three times each day including the exercises you were shown in physical therapy. * Get up and walk several times each day. For the first four weeks, try not to stand or walk for more than one hour at a time. If you do stand or walk for more than one hour, you will not hurt anything, but your leg will likely swell. * As you feel comfortable, you may change from the walker or crutches to a cane and then to independent walking. Medications: * Narcotic You will likely be sent home from the hospital with a prescription for the narcotic pain medication that worked best throughout your stay. * Aspirin Most patients will be required to take Aspirin 81mg twice a day for 6 weeks after surgery. This is obtained [id number] and a prescription is not necessary. * Other medications may be prescribed for specific circumstances. If you have any questions, please call the office at . * Resume previous home medications unless otherwise instructed TEDs/Elastic Stockings: The white elastic stockings help limit swelling and prevent blood clots from for yelena in your legs.~ The more you wear them, the more they work. Wear them for six weeks. Dressing Care: The dressing can be changed after physical therapy on postop day #1. Daily dry dressing changes for a few days, especially if the incision is still draining some. If the incision is not draining then you may leave the nayan open to air. If there is a little bit of drainage or if the nayan are getting stuck on your clothing then cover the incision with a dry dressing. The nayan will be removed at your 2 week follow-up appointment. Showering: You may shower 5 days from the day of surgery as long as the incision is no longer draining. You may shower with the nayan exposed. Let soapy water run over the nayan and pat them dry. Do not scrub or soak the incision. Things To Watch For: * Drainage from the incision site that occurs more than one week after your surgery. * Increased redness at the incision site. * Fever above 102 degrees Fahrenheit. * Unusual chest pain or shortness of breath. * Call [facility] at with any of the above problems Follow-Up Visit: Follow-up with Dr. Lou's PA (Mor Mendoza) 2-3 weeks after your day of surgery. He will remove your nayan and answer any questions. If you have any additional questions or concerns, Dr Lou is usually in the office at the same time and will be available An appointment was probably scheduled when you signed-up for surgery in the office. If you have any questions call Office Instructions: More detailed instructions as well as Frequently Asked Questions were provided in a folder by our office when you signed-up for surgery. Please review these instructions when you get home. If you have any further questions or concerns, please feel free to call the office at [phone] Pending Studies at Discharge: No Stand-Alone Forms: My [facility] [employer], Smoking Cessation Medications and DC Order Prescriptions: New oxycodone 5 mg Tablet 5 mg PO Q4H PRN (Reason: pain) Qty: 30 0RF Continued ferrous sulfate 325 mg (65 mg iron) tablet 325 mg PO QAM Qty: 90 1RF amoxicillin 500 mg tablet 2,000 mg PO ONCE PRN (Reason: Prior to Dental procedure) Qty: 4 3RF amlodipine 2.5 mg tablet 2.5 mg PO QAM Qty: 90 1RF fenofibrate micronized 200 mg capsule 200 mg PO QAM Qty: 90 3RF niacin [Niacor] 500 mg tablet 500 mg PO QAM omega-3 fatty acids 1,000 mg capsule 3,000 mg PO QAM aspirin 81 mg tablet,delayed release (DR/EC) 81 mg PO BID 42 Days Qty: 0 0RF atorvastatin [Lipitor] 40 mg tablet 40 mg PO DAILY omeprazole 40 mg capsule,delayed release(DR/EC) 40 mg PO QAM ascorbic acid (vitamin C) 250 mg tablet 250 mg PO QAM Admission Data Admit Date/Time: 06/27/23 10:07 Attending Provider: Mor Lou Admit Provider: Mor Lou Primary Care Provider: Randy Clayton
[2023-06-28] MEDS ORDERED: dexAMETHasone 4 MG TAB PO SCH (08:00)
[2023-06-28] MEDS: ASPIRIN 81 MG ECTAB PO SCH (08:43)
[2023-06-28] MEDS: DOCUSATE SODIUM 100 MG CAP PO SCH (08:44)
[2023-06-28] MEDS ORDERED: ATORVASTATIN 40 MG TAB PO SCH (09:00)
[2023-06-28] MEDS ORDERED: NIACIN 500 MG TAB PO SCH (09:00)
[2023-06-28] MEDS ORDERED: amLODIPine BESYLATE 5 MG TAB PO SCH (09:00)
[2023-06-28] MEDS ORDERED: FERROUS SULFATE 325 MG TAB PO SCH (09:00)
[2023-06-28] MEDS ORDERED: MULTIVITAMIN TAB PO SCH (09:00)
[2023-06-28] MEDS ORDERED: PANTOprazole 40 MG TAB PO SCH (09:00)
== END 2023-06-28 10:58 | disposition home or self-care (01) ==
LOC: ASU 06:04 → 3E 06:04